=== PATIENT | female | born 1965 ===

== ENCOUNTER 2025-05-17 15:44 | Outpatient (CLI) | payer OTHER, SELFPAY ==
--- NOTE | 2025-05-17 14:30 | DI.RAD_ITS ---
Exam(s) XR WRIST RT COMPLETE EXAM: XR WRIST RT COMPLETE CLINICAL HISTORY: right wrist pain. TECHNIQUE: 2D digital imaging was performed. Three views. COMPARISON: CR XR WRIST LT COMPLETE from 05/17/2025 FINDINGS: BONES: No acute fracture is present. No bony destructive lesion is seen. JOINTS: The carpal bones are normally aligned. There are minimal degenerative changes at the 1st carpal metacarpal joint. SOFT TISSUE: A small smoothly marginated bony density noted at the posterior aspect of the wrist adjacent to the proximal carpal row. IMPRESSION: Mild degenerative changes. DATA REPOSITORY: RADIATION DOSE DELIVERED:
--- NOTE | 2025-05-17 14:30 | DI.RAD_ITS ---
Exam(s) XR WRIST LT COMPLETE EXAM: XR WRIST LT COMPLETE CLINICAL HISTORY: left wrist pain. TECHNIQUE: 2D digital imaging was performed. Three views. COMPARISON: CR XR WRIST RT COMPLETE from 05/17/2025 FINDINGS: BONES: No acute fracture is present. No bony destructive lesion is seen. JOINTS: The carpal bones are normally aligned. There are mild degenerative changes 1st carpal metacarpal joint. There is a smoothly marginated bony density adjacent to the joint. SOFT TISSUE: Normal. IMPRESSION: Mild degenerative changes of the 1st carpal metacarpal joint. DATA REPOSITORY: RADIATION DOSE DELIVERED:
== END 2025-05-17 15:45 | disposition home or self-care (01) ==
LOC: DIORS 15:45
PROVIDERS: Visit Provider Physician Assistant
DX: M19.031 Primary osteoarthritis, right wrist; M19.032 Primary osteoarthritis, left wrist
CPT/HCPCS: 73110